=== PATIENT | male | born 1990 | race Caucasian/White ===

== ENCOUNTER 2018-01-06 07:10 | Emergency (ER) | payer OTHER ==
[~2018-01-06] VITALS: Ht 170.2 cm; Wt 85.7 kg
[~2018-01-06 07:10] MED LIST: CLEOCIN HCL300 MG PO; HYDROCODONE-AP1 EAC6 PO; IBUPROFEN 800800 M1 PO; SILVADENE20 GM TP
[2018-01-06] MEDS ORDERED: NAPROSYN500 MG PO (08:01)
[2018-01-06 08:21] VITALS: BP 129/93
== END 2018-01-06 08:23 | disposition home or self-care (01) ==
LOC: M.ERS 07:10
DX: S83.8X1A Sprain of other specified parts of right knee, initial encounter (principal); Z88.1 Allergy status to other antibiotic agents; Z88.0 Allergy status to penicillin; X50.9XXA Other and unspecified overexertion or strenuous movements or postures, initial encounter; Y93.89 Activity, other specified; Y92.89 Other specified places as the place of occurrence of the external cause; Y99.8 Other external cause status